=== PATIENT | female | born 1960 | race Caucasian/White ===

== ENCOUNTER 2023-06-19 18:15 | Emergency (ER) | payer OTHER, SELFPAY ==
[2023-06-19 18:16] VITALS: BP 137/73
--- NOTE | 2023-06-19 19:38 | ED.GENMED ---
History of Present Illness
General
Chief Complaint: Musculo-Skeletal Complaint
Time Seen by Provider: 06/19/23 19:25
Travel History
Have you had any contact with someone who has COVID-19?: No
Do you have any symptoms of coronavirus? Fever > 100 degrees, chills, cough, shortness of breath, sore throat, loss of taste or smell, muscle aches, or headache?: No
History of Present Illness
History of Present Illness:
63-year-old female presents to the emergency department for evaluation of right thumb pain after having the thumb get stuck in a car door 3 days ago. Has having limited range of motion due to pain. Denies any fevers or chills.
Past History
Past History
ED Past Medical History: None
Social History
Tobacco: Non-smoker
Review of Systems
Review of Systems
Allergies reviewed?: Yes
All Other Systems: ROS reviewed and negative except as documented in HPI and ROS
Phy Exam
Physical Exam
Physical Exam:
GEN: Well appearing, NAD, WDWN
HEENT: Oral mucosa moist, no scleral icterus
Cardiac: Regular rate
Lung: No respiratory distress, no tachypnea
MSK: Mild swelling circumferentially to the right thumb, superficial wounds to the dorsal and volar aspects of the IP joint with no active discharge or erythema. Extension is fully intact, slightly limited by swelling, no significant tenderness
Skin: Good color, no pallor or jaundice, no rashes
Neuro: AO x3, moves all extremities freely
Psych: Calm, cooperative
Course
Orders/Labs/Results
Orders:
Orders
06/19/23 18:19
Finger(s)/Thumb 2 View Rt [CR Finger(s)/thumb Min 2 Vw Rt] Urgent
Comment:
Reason For Exam: swelling, pain
Indicate Which Finger:: Thumb
Vital Signs
Initial and Last Documented VS:
Initial Vital Signs
Temp Pulse Resp BP Pulse Ox
98.3 F 84 16 137/73 95
06/19/23 18:16 06/19/23 18:16 06/19/23 18:16 06/19/23 18:16 06/19/23 18:16
Last Documented Vital Signs
Temp Pulse Resp BP Pulse Ox
98.3 F 84 16 137/73 95
06/19/23 18:16 06/19/23 18:16 06/19/23 18:16 06/19/23 18:16 06/19/23 18:16
MDM/Problems Addressed
MDM/Problems Addressed:
X-rays unremarkable, no clinical signs of infectious etiology. No clinical exam findings concerning for tendon rupture. Discussed Supportive care
*Critical Care Note
Total Time (30-74mins, 75-104mins- exclusive of procedures): Not Applicable
ED Attending Note
-
Portions of this chart may have been created with voice recognition software.� Occasional wrong word or��sound alike� substitutions may have occurred due to the inherent limitations of voice recognition software.
Discharge Plan
Departure
Patient Disposition: Home (Routine Discharge)
Date of Disposition: 06/19/23
Time of Disposition: 19:40
Patient with high blood pressure during this ER visit?: No
Discharge Problem:
Contusion of right thumb
Instructions: Thumb Sprain ED
Interventions
Interventions:
*Risk Screen - Suicide Last Done: 06/19/23 21:00
*General Assessment Last Done: 06/19/23 21:00
*Neglect/Abuse Screening Last Done: 06/19/23 21:00
ED- Fall Risk Assessment Last Done: 06/19/23 20:58
*ED COVID-19 Vaccine History Last Done: 06/19/23 18:16
*Nursing Disposition Last Done: 06/19/23 21:00
ED-Musculoskeletal Assessment Last Done: 06/19/23 20:58
Discharge Date and Time
Discharge Date/Time: 06/19/23 21:03
Print Language: SINHALA
== END 2023-06-19 21:03 | disposition home or self-care (01) ==
LOC: EMR 18:15
PROVIDERS: EMERGENCY PHYSICIAN Student in an Organized Health Care Education/Training Program; FAMILY PHYSICIAN Family Medicine
DX: S60.011A Contusion of right thumb without damage to nail, initial encounter (principal); W23.0XXA Caught, crushed, jammed, or pinched between moving objects, initial encounter
CPT/HCPCS: 99283; 73140

== ENCOUNTER → 2024-12-24 12:21 | Outpatient (REF) | payer OTHER, SELFPAY | LOC: HWWDC 12:21 | PROVIDERS: ATTENDING PHYSICIAN Student in an Organized Health Care Education/Training Program | DX: Z12.31 Encounter for screening mammogram for malignant neoplasm of breast (principal) | CPT/HCPCS: 77063; 77067 ==